=== PATIENT | female | born 1950 | race Caucasian/White ===

== ENCOUNTER 2016-12-21 10:21 | Emergency (ER) | payer MEDICARE, OTHER ==
[2016-12-21 10:17] LABS: ASCORBIC ACID (UR NOT ORDER) NEG (NEG); BILIRUBIN, URINE NEGATIVE (NEG); ER URINALYSIS TAT 0 Hrs 10 Mins; KETONE, URINE NEGATIVE (NEG); LEUKOCYTE ESTERASE(NOT OR NEG (NEG); NITRITE (URINE) NEG (NEG); WBC (NOT ORDERED) (RFLEX) 1 (0-5)
[2016-12-21 10:41] LABS: BASOPHILS 0.1 %; BASOPHILS ABSOLUTE 0.01 10/3/uL (0.0-0.16); EOSINOPHILS 0.4 %; EOSINOPHILS ABSOLUTE 0.03 10/3/uL (0.0-0.53); HEMATOCRIT 40.6 % (36.0-48.0); HEMOGLOBIN 14.2 g/dL (12.0-16.0); IMMATURE GRANULOCYTES 0.6 %; IMMATURE GRANULOCYTES ABSOLUTE 0.04 10/3/uL (0.0-0.11); LYMPHOCYTES 5.9 %; MANUAL DIFF NO %; MEAN CORPUSCULAR HEMOGLOB 31.6 pg (26.0-34.0); MEAN CORPUSCULAR VOLUME 90.4 fL (80-100); MEAN PLATELET VOLUME 10.1 fL (9.2-13.0); MONOCYTES 7.5 %; MONOCYTES ABSOLUTE 0.51 10/3/uL (0.21-1.20); NEUTROPHILS 85.5 %; NEUTROPHILS ABSOLUTE 5.83 10/3/uL (2.02-8.40); PLATELET COUNT 195 10/3/uL (150-400); RBC DISTRIBUTION WIDTH 12.3 % (12.0-16.0); RED CELL COUNT 4.49 10/6/uL (4.0-5.6); WHITE BLOOD CELLS 6.8 10/3/uL (4.5-10.5)
[2016-12-21 11:01] LABS: ALBUMIN 3.7 G/DL (3.5-5.0); ALKALINE PHOSPHATASE 73 U/L (45-117); CALCIUM, SERUM 9.1 MG/DL (8.5-10.4); CHLORIDE, SERUM 105 MMOL/L (96-112); CREATININE 0.64 MG/DL (0.55-1.02); GFR AFRICAN AMERICAN 109 ML/MIN (>=60); GFR NON AFRICAN AMERICAN 94 ML/MIN (>=60); GLUCOSE, SERUM 99 MG/DL (60-99); POTASSIUM, SERUM 3.4 MMOL/L (3.5-5.3); SGPT(ALT) 20 U/L (5-65); SODIUM, SERUM 138 MMOL/L (135-148); TOTAL BILIRUBIN 0.5 MG/DL (0-1.2); TOTAL PROTEIN 7.6 G/DL (6.0-8.5)
[2016-12-21 11:02] LABS: A/G RATIO 0.9 (0.7-1.9); BUN (BLOOD UREA NITROGEN) 7 MG/DL (6-23); CO2 (CARBON DIOXIDE) 23 MMOL/L (24-34); GLOBULIN 3.9 G/DL (2.5-4.1); SGOT(AST) 28 U/L (5-40)
[2016-12-21 11:03] LABS: PLATELET ESTIMATE ADQ (ADEQUATE); RBC MORPHOLOGY NORM (NORMAL)
[2016-12-24] MEDS ORDERED: HYZAAR 100/25 T1 TAB PO (09:51)
[2016-12-24] MEDS ORDERED: PRAVAC PO (09:52)
[2016-12-24] MEDS ORDERED: SINGULAIR1 PO (09:52)
[2016-12-24] MEDS ORDERED: PRILOSEC40 MG PO (09:52)
[2016-12-24] MEDS ORDERED: KLOR-CON M2020 MEQ PO (09:52)
[2016-12-24] MEDS ORDERED: CALTRAT600 PO (09:53)
[2016-12-24] MEDS ORDERED: TRAZ50 PO (09:53)
[2016-12-24] MEDS ORDERED: VITE PO (09:53)
[2016-12-24] MEDS ORDERED: FISH-EPA1000 MG PO (09:54)
[2016-12-24] MEDS ORDERED: HALF81 PO (09:54)
[2016-12-24] MEDS ORDERED: THERGRANM PO (09:54)
[2016-12-24] MEDS ORDERED: NORCO1 TA1 PO (09:55)
== END 2016-12-21 13:57 | disposition home or self-care (01) ==
LOC: ER 10:21
PROVIDERS: Nurse Practitioner
DX: R59.0 Localized enlarged lymph nodes (principal); M54.5 Low back pain; E87.6 Hypokalemia; R10.32 Left lower quadrant pain; Z87.891 Personal history of nicotine dependence; I10 Essential (primary) hypertension; K21.9 Gastro-esophageal reflux disease without esophagitis; Z90.710 Acquired absence of both cervix and uterus
CPT/HCPCS: 74176; 80053; 81001; 83690; 85025; 99285; A9270-GY

== ENCOUNTER 2016-12-24 11:18 | Observation (INO) | payer MEDICARE, OTHER ==
--- NOTE | ~2016-12-24 | CN ---
Consultation Report [facility] [address] [place]. [address] NAME: SUSU APARICIO : 52 STATUS : ADM Dennis PAT#: [id number] AGE: 66 ADM/REG DATE : 12/24/16 MR#: [id number] REPORT SERV DATE: 12/25/16 DICTATED BY: DIEGO MURRAY III DATE: 12/25/16 REPORT STATUS : Draft TRANSCRIBED BY: MODIsaias DATE: 12/25/16 CONSULTATION DATE OF CONSULTATION: 12/25/2016 REASON FOR CONSULTATION: Abdominal lymphadenopathy. HISTORY OF PRESENT ILLNESS: Ms. Aparicio is a 66-year-old female, who developed abdominal pain and back pain roughly two weeks ago. This has progressively worsened during this time, and was previously controlled with oral pain medicines until the day of admission when it became intractable. She was found to have abdominal lymphadenopathy on a CT scan concerning for possible lymphoma. Presently, her pain is controlled and she has not noted any recent fevers, chills, night sweats, or weight loss. Her energy level has been mildly lower. PAST MEDICAL HISTORY: Significant for hypertension, gastroesophageal reflux disease, and hyperlipidemia. SOCIAL HISTORY: Negative for any tobacco or alcohol abuse. FAMILY HISTORY: Negative for any lymphoma or other bone marrow disorders. Her mom did have lung cancer and a brother with throat cancer. HOME MEDICATIONS: Her home medications list was reviewed and per the home med list. REVIEW OF SYSTEMS: A comprehensive review of systems was performed and is negative unless noted in the HPI. PHYSICAL EXAMINATION: VITAL SIGNS: Blood pressure was 105/53, temperature is 99.5, pulse is 82, and respirations are 18 per minute. GENERAL: This is a well-developed, well-nourished female in no acute distress. HEENT: Eyes, pupils are round and reactive to light. There is anicteric sclera. NECK: Supple with no masses or thyroid enlargement. There is no JVD. CARDIOVASCULAR: Regular rate and rhythm with no audible murmurs. There is no peripheral edema. LUNGS: Clear to auscultation bilaterally with normal respiratory effort. ABDOMEN: Soft, nondistended, nontender with no noted hepatosplenomegaly. SKIN: Warm and dry with good skin turgor. There are no jaundice. LYMPHATICS: Negative for any cervical, supraclavicular, infraclavicular, or axillary lymphadenopathy. PSYCH: She is alert, oriented, and comprehends our conversation with normal judgment and affect. IMAGING: Her CT scan was personally reviewed and did show multiple enlarged abdominal and Consultation Report [place] [address] [address] NAME: SUSU APARICIO : 52 STATUS : ADM Dennis PAT#: [id number] AGE: 66 ADM/REG DATE : 12/24/16 MR#: [id number] REPORT SERV DATE: 12/25/16 DICTATED BY: DIEGO MURRAY III DATE: 12/25/16 REPORT STATUS : Draft TRANSCRIBED BY: MODL DATE: 12/25/16 retroperitoneal lymph nodes. ASSESSMENT AND PLAN: 1. Likely lymphoma. We will obtain a CT-guided biopsy. She has now been off her aspirin for several days. From an Oncology standpoint, she can be discharged to home after her biopsy if her pain is controlled. 2. Pain. She is transitioning to oral pain medications. CHUCKA/BALTA Diego Murray III, M.D. / [id number] CC: Jemma Tucker M.D.
--- NOTE | ~2016-12-24 | DS ---
Discharge Summary [facility] [address] [place]. [address] NAME: SUSU ALICIA : 52 STATUS : DIS Dennis PAT#: [id number] AGE: 66 ADM/REG DATE : 12/24/16 MR#: [id number] REPORT SERV DATE: 12/27/16 DICTATED BY: SERVANDO DUQUE DATE: 12/26/16 REPORT STATUS : Draft TRANSCRIBED BY: MODL DATE: 12/26/16 ADMISSION DATE: 12/24/2016 DISCHARGE DATE: 12/26/2016 DISCHARGE DIAGNOSES: 1. Significant retroperitoneal adenopathy with possibility of lymphoma, status post CT- guided biopsy. 2. Intractable back pain due to adenopathy. 3. Hypertension. 4. Constipation. 5. Hyperlipidemia. CONSULTANTS DURING THIS HOSPITALIZATION: Dr. Marquess Lawler of Hematology/Oncology. INVASIVE PROCEDURES DONE DURING THIS HOSPITALIZATION: CT-guided biopsy of the abdominal lymph node. BRIEF HISTORY OF PRESENT ILLNESS: The patient is a 66-year-old female, presented with intractable back pain, roughly two weeks ago was found to have significant lymphadenopathy on the CT scan and was scheduled for outpatient workup, however, the pain got so worse that the patient had to come to the hospital. For detailed history and physical exam, please see note dictated by Dr. Sulma Reyna on 12/24/2016. HOSPITAL COURSE: After being admitted to the hospital, this patient was given IV pain control. She did fairly well. Dr. Lawler saw the patient in consultation, ordered the CT- guided biopsy as an inpatient, this was performed today. This patient is feeling well. She is ambulating, however, her pain still remains somewhat uncontrolled. We have increased her hydrocodone to 10 mg every six hours, #60, with no refills have been given. This patient has not had a bowel movement and feels constipated. For that we have given her medications and our plan is to discharge her once she has a bowel movement. DISCHARGE DISPOSITION: Home. DISCHARGE ACTIVITY: As tolerated. DISCHARGE DIET: GI soft diet. DISCHARGE MEDICATIONS: Hydrocodone 10/325 every six hours p.r.n. for pain, #60, with no refills, MiraLAX one packet daily with 8 ounces of water, milk of magnesia 30 mL every day p.r.n. for constipation, calcium carbonate 600 mg twice daily, Singulair 10 mg once daily, multivitamins one tablet daily, fish oil 1000 mg twice daily, Prilosec 40 mg once daily, potassium 20 mEq once daily, Pravachol 20 mg once at bedtime, vitamin E 200 units once daily, Hyzaar 100/25 mg one tablet daily, trazodone 50 mg to 100 mg once at bedtime, aspirin 81 mg once daily. DISCHARGE FOLLOWUP: With Dr. Lawler as scheduled by him in the office and with Dr. Galeas Discharge Summary [address] [address] NAME: SUSU ALICIA : 52 STATUS : DIS Dennis PAT#: [id number] AGE: 66 ADM/REG DATE : 12/24/16 MR#: [id number] REPORT SERV DATE: 12/27/16 DICTATED BY: SERVANDO DUQUE DATE: 12/26/16 REPORT STATUS : Draft TRANSCRIBED BY: BALTA DATE: 12/26/16 Cade as previously scheduled. More than 25 minutes spent planning this patient's discharge, reconciling medications, writing prescriptions, discussing hospital care, and follow up with the patient and the at the bedside and documenting this discharge. DICTATED BY: Jemma Tucker/BALTA Servando Duque M.D. / [id number] CC: Jemma Tucker M.D. Bertrand Marquess Anz III, M.D.
--- NOTE | ~2016-12-24 | HP ---
History And Physical [facility] [address] [place]. [address] NAME: SUSU ALICIA : 52 STATUS : ADM Dennis PAT#: [id number] AGE: 66 ADM/REG DATE : 12/24/16 MR#: [id number] REPORT SERV DATE: 12/24/16 DICTATED BY: SULMA BARTHOLOMEW DATE: 12/24/16 REPORT STATUS : Draft TRANSCRIBED BY: MODL DATE: 12/24/16 DATE OF ADMISSION: 12/24/2016 CHIEF COMPLAINT: Intractable back pain and abdominal pain for more than one week, getting progressively worse over the last few days. HISTORY OF PRESENT ILLNESS: This is a very olvin 66 years old female with a significant past medical history significant for hypertension, hyperlipidemia, GERD, who has been presenting today to [facility] with complaints starting a couple of weeks ago with back pain. Initially, her history was lower back pain, it got a little bit progressively worse and up and that back pain initially has been managed with nonsteroidal drugs, but after this, the back pain got progressively worse and starting for about few days, she experienced additional abdominal pain. She said the abdominal pain is constant mostly dull in quantity, but sometimes associated with cramps and as a result, due to her back pain and abdominal pain, she presented to [facility] on 12/21/2016. A few days ago, she had a CT of the abdomen and pelvis, which did show significant mesenteric, retroperitoneal, and retrocrural lymphadenopathy possible concerning for lymphoma, probably less likely rey spread from other malignancies. The patient contacted Dr. Sergio Galeas, who planned to do an outpatient intervention radiology biopsy and she has been managed with oral pain medications for few days, but her pain got progressively worse to the point that she has decided to present to the emergency room. She did not have any chest pain or any shortness of breath. She did have some nausea, but no vomiting. No diarrhea or constipation. No hematemesis or melena. No hematochezia. No other complaints. The patient has been evaluated in the emergency room and CT has been repeated which confirmed the presence of these retroperitoneal, mesenteric, and retrocrural lymphadenopathy that has been unchanged. Patient has been admitted to Hospitalist Service for management of her pain and further recommendations. PAST MEDICAL HISTORY: Significant for hypertension, GERD, hyperlipidemia. PAST SURGICAL HISTORY: Include hysterectomy and inguinal hernia repair. PAST SOCIAL HISTORY: Denies tobacco, alcohol, or IV drugs. She does not have any drug allergies. MEDICATIONS AT HOME: Include aspirin; calcium carbonate; Luther; Hyzaar; Singulair; multivitamin; fish oil; Prilosec; potassium chloride; Pravachol; vitamin E, and trazodone. FAMILY HISTORY: Significant for lung cancer as well as throat cancer. REVIEW OF SYSTEMS: 14-point review of systems has been obtained and pertinent positive has been listed into the history of present illness. Otherwise, negative except those underlying above. PHYSICAL EXAMINATION: VITAL SIGNS: The patient is afebrile. Blood pressure 177/66, heart rate 94, respiratory History And Physical [address] [address] NAME: SUSU ALICIA : 52 STATUS : ADM Dennis PAT#: [id number] AGE: 66 ADM/REG DATE : 12/24/16 MR#: [id number] REPORT SERV DATE: 12/24/16 DICTATED BY: SULMA BARTHOLOMEW DATE: 12/24/16 REPORT STATUS : Draft TRANSCRIBED BY: BALTA DATE: 12/24/16 rate 16, and saturating 94% on room air. GENERAL: She is a very pleasant, well-developed, well-nourished female, in no acute distress. She is alert and oriented x3. She is nonfocal. She follows all her commands appropriately. HEENT: Show pupils equal, round, and reactive to light. Extraocular movements intact. NECK: No JVD. No lymphadenopathy. No thyromegaly appreciated. CHEST: Evaluation shows bilateral air entry, clear anteroposterior. No wheezes, crackles, or rhonchi appreciated. CARDIOVASCULAR: She has regular rate and rhythm. S1, S2 positive. No S3, no S4. No murmurs, rubs, or gallops appreciated. ABDOMEN: Soft, there is tenderness throughout, but no guarding, no rebound. EXTREMITIES: No clubbing, cyanosis, or edema. NEUROLOGIC: She is alert and oriented x3. She is nonfocal. She follows all her commands appropriately. LABORATORY DATA: Labs from today include sodium 139; potassium 3.5; chloride 102; CO2 31; BUN 7; creatinine 0.62. Glucose is 113. Her troponin is less than 0.02. Her white count 5.7, hemoglobin 14.3, hematocrit 40.5, and platelets 233. Her INR is 1.1. UA has been negative. Chest x-ray, portable, performed in the emergency room shows no acute cardiopulmonary abnormality that could be appreciated. ASSESSMENT AND PLAN: 1. This is a very pleasant 66 years old female with new-onset abdominal pain as well as back pain and possible new diagnosed lymphoma. 2. History of hypertension. 3. Hyperlipidemia. 4. History of gastroesophageal reflux disease. The patient is going to be admitted to Hospitalist Service. We are going to check a CT of the chest as well as of the spine. We are going to check an LDH as well as pain control. We are going to consult Hematology/Oncology for further recommendation regarding inpatient biopsy and further recommendation. We will continue her home medications. We will provide reasonable pain and nausea control as well as GI and DVT prophylaxis. That has been discussed extensively with the patient. 5. History of hypertension. We will continue her home medications and provide p.r.n. hydralazine as needed. 6. Hyperlipidemia. We will continue her home medications. All the questions have been answered in full. Further workup and recommendation pending above. It is worthwhile to note that the patient is going to be followed by Dr. Neto Al. CF/MODL History And Physical [address] [address] NAME: SUSU ALICIA : 52 STATUS : ADM Dennis PAT#: [id number] AGE: 66 ADM/REG DATE : 12/24/16 MR#: [id number] REPORT SERV DATE: 12/24/16 DICTATED BY: SULMA BARTHOLOMEW DATE: 12/24/16 REPORT STATUS : Draft TRANSCRIBED BY: MODL DATE: 12/24/16 Sulma Bartholomew M.D. / [id number] CC: Jemma Tucker M.D.
[2016-12-24 10:24] LABS: BASOPHILS 0.2 %; BASOPHILS ABSOLUTE 0.01 10/3/uL (0.0-0.16); EOSINOPHILS 0.2 %; EOSINOPHILS ABSOLUTE 0.01 10/3/uL (0.0-0.53); ER CBC TAT 0 Hrs 05 Mins; HEMATOCRIT 40.5 % (36.0-48.0); HEMOGLOBIN 14.3 g/dL (12.0-16.0); LYMPHOCYTES ABSOLUTE 0.57 10/3/uL (0.67-4.30); MANUAL DIFF NO %; MEAN CORPUS HGB CONC 35.3 g/dL (32.0-36.0); MEAN CORPUSCULAR HEMOGLOB 31.6 pg (26.0-34.0); MEAN CORPUSCULAR VOLUME 89.4 fL (80-100); MEAN PLATELET VOLUME 9.4 fL (9.2-13.0); MONOCYTES 2.8 %; MONOCYTES ABSOLUTE 0.16 10/3/uL (0.21-1.20); NEUTROPHILS 86.8 %; NEUTROPHILS ABSOLUTE 4.93 10/3/uL (2.02-8.40); PLATELET COUNT 233 10/3/uL (150-400); RBC DISTRIBUTION WIDTH 12.5 % (12.0-16.0); RED CELL COUNT 4.53 10/6/uL (4.0-5.6); WHITE BLOOD CELLS 5.7 10/3/uL (4.5-10.5)
[2016-12-24 10:31] LABS: INTERNATIONAL NORMAL RATI 1.1 UNITS (-)
[2016-12-24 10:40] LABS: BUN (BLOOD UREA NITROGEN) 7 MG/DL (6-23); CALCIUM, SERUM 9.4 MG/DL (8.5-10.4); CHEST PAIN PROFILE TAT 0 Hrs 21 Mins; CHLORIDE, SERUM 102 MMOL/L (96-112); CREATININE 0.62 MG/DL (0.55-1.02); GFR AFRICAN AMERICAN 110 ML/MIN (>=60); GFR NON AFRICAN AMERICAN 95 ML/MIN (>=60); GLUCOSE, SERUM 113 MG/DL (60-99); POTASSIUM, SERUM 3.5 MMOL/L (3.5-5.3); SODIUM, SERUM 139 MMOL/L (135-148); TROPONIN I <0.02 NG/ML (<0.05)
[2016-12-24 10:42] LABS: CO2 (CARBON DIOXIDE) 31 MMOL/L (24-34)
[~2016-12-24 11:18] MED LIST: CALTRAT600 PO; FISH-EPA1000 MG PO; HALF81 PO; HYZAAR 100/25 T1 TAB PO; KLOR-CON M2020 MEQ PO; NORCO1 TA1 PO; PRAVAC PO; PRILOSEC40 MG PO; SINGULAIR1 PO; THERGRANM PO; TRAZ50 PO; VITE PO
[2016-12-24 13:20] LABS: ASCORBIC ACID (UR NOT ORDER) NEG (NEG); BILIRUBIN, URINE NEGATIVE (NEG); ER URINALYSIS TAT 0 Hrs 15 Mins; KETONE, URINE TRACE MG/DL (NEG); LEUKOCYTE ESTERASE(NOT OR NEG (NEG); NITRITE (URINE) NEG (NEG); WBC (NOT ORDERED) (RFLEX) 1 (0-5)
[2016-12-24 20:35] LABS: ALBUMIN 3.8 G/DL (3.5-5.0); ALKALINE PHOSPHATASE 74 U/L (45-117); DIRECT BILIRUBIN 0.1 MG/DL (0.0-0.4); FERRITIN 109 NG/ML (8-252); FREE T4 1.75 NG/DL (0.76-1.46); INDIRECT BILIRUBIN(NOT ORDER) 0.2 MG/DL (0.1-0.9); IRON BINDING CAPACITY 294 MCG/DL (225-410); IRON, SERUM 38 MCG/DL (35-150); PHOSPHORUS, SERUM 2.3 MG/DL (2.5-4.5); SGOT(AST) 29 U/L (5-40); SGPT(ALT) 25 U/L (5-65); TOTAL BILIRUBIN 0.3 MG/DL (0-1.2); TOTAL PROTEIN 7.9 G/DL (6.0-8.5)
[2016-12-25 04:05] LABS: INTERNATIONAL NORMAL RATI 1.2 UNITS (-); PARTIAL THROMBO TIME 32.6 SEC (22.5-37.2); PROTIME (NOT ORD) 15.1 SEC (12.0-14.5)
[2016-12-25 04:09] LABS: BUN (BLOOD UREA NITROGEN) 8 MG/DL (6-23); C-REACTIVE PROTEIN 43.9 MG/L (<8.0); CALCIUM, SERUM 8.9 MG/DL (8.5-10.4); CHLORIDE, SERUM 107 MMOL/L (96-112); CO2 (CARBON DIOXIDE) 29 MMOL/L (24-34); CREATININE 0.43 MG/DL (0.55-1.02); GFR AFRICAN AMERICAN 124 ML/MIN (>=60); GFR NON AFRICAN AMERICAN 107 ML/MIN (>=60); POTASSIUM, SERUM 3.3 MMOL/L (3.5-5.3); SGOT(AST) 20 U/L (5-40); SGPT(ALT) 22 U/L (5-65); SODIUM, SERUM 139 MMOL/L (135-148); TOTAL BILIRUBIN 0.3 MG/DL (0-1.2)
[2016-12-25 04:11] LABS: A/G RATIO 0.9 (0.7-1.9); ALBUMIN 2.9 G/DL (3.5-5.0); ALKALINE PHOSPHATASE 58 U/L (45-117); GLOBULIN 3.3 G/DL (2.5-4.1); GLUCOSE, SERUM 90 MG/DL (60-99); TOTAL PROTEIN 6.2 G/DL (6.0-8.5)
[2016-12-25 10:26] LABS: BASOPHILS 0.2 %; BASOPHILS ABSOLUTE 0.01 10/3/uL (0.0-0.16); EOSINOPHILS 0.5 %; EOSINOPHILS ABSOLUTE 0.03 10/3/uL (0.0-0.53); HEMATOCRIT 37.4 % (36.0-48.0); HEMOGLOBIN 12.6 g/dL (12.0-16.0); IMMATURE GRANULOCYTES 0.2 %; IMMATURE GRANULOCYTES ABSOLUTE 0.01 10/3/uL (0.0-0.11); LYMPHOCYTES 10.4 %; MANUAL DIFF NO %; MEAN CORPUS HGB CONC 33.7 g/dL (32.0-36.0); MEAN CORPUSCULAR HEMOGLOB 30.9 pg (26.0-34.0); MEAN CORPUSCULAR VOLUME 91.7 fL (80-100); MEAN PLATELET VOLUME 9.5 fL (9.2-13.0); MONOCYTES 10.2 %; MONOCYTES ABSOLUTE 0.59 10/3/uL (0.21-1.20); NEUTROPHILS 78.5 %; NEUTROPHILS ABSOLUTE 4.53 10/3/uL (2.02-8.40); PLATELET COUNT 254 10/3/uL (150-400); RBC DISTRIBUTION WIDTH 12.2 % (12.0-16.0); RED CELL COUNT 4.08 10/6/uL (4.0-5.6); WHITE BLOOD CELLS 5.8 10/3/uL (4.5-10.5)
[2016-12-26 05:28] LABS: BUN (BLOOD UREA NITROGEN) 7 MG/DL (6-23); CALCIUM, SERUM 8.4 MG/DL (8.5-10.4); CHLORIDE, SERUM 103 MMOL/L (96-112); CO2 (CARBON DIOXIDE) 26 MMOL/L (24-34); CREATININE 0.44 MG/DL (0.55-1.02); GFR AFRICAN AMERICAN 123 ML/MIN (>=60); GFR NON AFRICAN AMERICAN 106 ML/MIN (>=60); GLUCOSE, SERUM 86 MG/DL (60-99); POTASSIUM, SERUM 3.3 MMOL/L (3.5-5.3); SODIUM, SERUM 135 MMOL/L (135-148)
[2016-12-26] MEDS ORDERED: NORCO1 TAB PO (14:32)
[2016-12-26] MEDS ORDERED: MIRALAX POWDER1 PKT PO (14:34)
[2016-12-26] MEDS ORDERED: MOMUD PO (14:35)
== END 2016-12-26 16:13 | disposition home or self-care (01) ==
LOC: ER 11:18 → CDU1 16:11 → CDU2 16:55 → CDU1 18:27
PROVIDERS: Emergency Medicine; Internal Medicine; Radiology Vascular & Interventional Radiology
DX: C82.03 Follicular lymphoma grade I, intra-abdominal lymph nodes (principal); R59.0 Localized enlarged lymph nodes; M54.9 Dorsalgia, unspecified; I10 Essential (primary) hypertension; E78.5 Hyperlipidemia, unspecified; K59.00 Constipation, unspecified; K21.9 Gastro-esophageal reflux disease without esophagitis; Z90.710 Acquired absence of both cervix and uterus; Z98.890 Other specified postprocedural states; Z79.82 Long term (current) use of aspirin; Z79.899 Other long term (current) drug therapy
CPT/HCPCS: 49180; 71010; 74176; 77012; 80048 ×2; 80053; 80076; 81001; 82728; 83540; 83550; 83615; 83690; 83735 ×3; 84100; 84439; 84443; 84484; 85025 ×2; 85610 ×2; 85652; 85730 ×2; 86140; 87449 ×2; 88307; 88333; 88341; 88342; 88360; 93005; 96372 ×3; 96374; 96375 ×2; 96376 ×2; 99285; A9270 ×26; G0378; J1170; J2250; J2405 ×3; J3010; 88305